=== PATIENT | male | born 1975 | race Caucasian/White ===

== ENCOUNTER 2023-04-02 21:12 | Emergency (ER) | payer MEDICAID ==
[~2023-04-02] VITALS: Ht 188 cm; Wt 104.3 kg
[2023-04-02 21:51] VITALS: BP_SYST 144; PULSE 114; RESP 18; TEMP 98.4; O2SAT 97
[2023-04-02] MEDS ORDERED: DIPHTH,PERTUSS(ACELL),TET VAC 0.5 ML VIAL (Tdap) I.M. ONE (22:45)
[2023-04-02] MEDS ORDERED: LIDOCAINE 1%, 20 ML MDV 20 ML ONE (23:13)
[2023-04-02] MEDS ORDERED: LIDOCAINE 1% 10 MG/ML, 20 ML MDV INJ ONE (23:15)
[2023-04-03] MEDS ORDERED: ACET-2634 PO (00:13)
[2023-04-03 00:26] VITALS: BP_SYST 130; PULSE 102; RESP 18; TEMP 98.4; O2SAT 97
== END 2023-04-03 00:22 | disposition home or self-care (01) ==
LOC: SED 21:12
DX: S61.210A Laceration without foreign body of right index finger without damage to nail, initial encounter (principal); Z79.899 Other long term (current) drug therapy; W26.0XXA Contact with knife, initial encounter; Y93.89 Activity, other specified; Y92.89 Other specified places as the place of occurrence of the external cause; Y99.8 Other external cause status
CPT/HCPCS: 99283; 90715; 90471; 12002; J2001

== ENCOUNTER 2023-07-11 14:38 | Emergency (ER) | payer SELFPAY ==
[~2023-07-11] VITALS: Ht 188 cm; Wt 104.3 kg
[~2023-07-11 14:38] MED LIST: ACET-2634 PO
[2023-07-11 15:05] VITALS: BP_SYST 163; PULSE 129; RESP 18; TEMP 98.6; O2SAT 95
[2023-07-11] MEDS ORDERED: ACETAMINOPHEN 500 MG TABLET PO ONE (16:30)
[2023-07-11 16:40] VITALS: BP_SYST 163; PULSE 129; RESP 18; TEMP 98.6; O2SAT 95
== END 2023-07-11 16:40 | disposition left against medical advice (07) ==
LOC: SED 14:38
DX: S93.402A Sprain of unspecified ligament of left ankle, initial encounter (principal); Z79.899 Other long term (current) drug therapy; W22.8XXA Striking against or struck by other objects, initial encounter; Y93.89 Activity, other specified; Y92.89 Other specified places as the place of occurrence of the external cause; Y99.8 Other external cause status
CPT/HCPCS: 99283

== ENCOUNTER 2023-11-30 03:28 | Emergency (ER) | payer SELFPAY ==
[~2023-11-30] VITALS: Ht 188 cm; Wt 104.3 kg
[2023-11-30 03:37] VITALS: BP_SYST 145; PULSE 104; RESP 18; TEMP 98.3; O2SAT 98
[2023-11-30] MEDS: cefTRIAXone 1 GM in LIDOCAINE 1%, 20 ML MDV 2.1 ML IM ONE (04:23)
[2023-11-30] MEDS ORDERED: NAPR-1172 PO (04:32)
[2023-11-30] MEDS ORDERED: CEPH-548 PO (04:32)
[2023-11-30 04:45] VITALS: BP_SYST 145; PULSE 104; RESP 18; TEMP 98.3; O2SAT 98
== END 2023-11-30 04:41 | disposition home or self-care (01) ==
LOC: SED 03:28
DX: L03.112 Cellulitis of left axilla (principal); Z79.899 Other long term (current) drug therapy; Z79.2 Long term (current) use of antibiotics
CPT/HCPCS: 99283; 96372; J0696; J2001